=== PATIENT | female | born 1990 | race Hispanic/Latino ===

== ENCOUNTER → 2023-11-05 09:20 | Outpatient (REF) | payer OTHER, SELFPAY ==
[2023-11-05 10:42] LABS: ALT (SGPT) 48 U/L (0-35); AST (SGOT) 29 U/L (14-36); Albumin 4.5 g/dl (3.5-5.0); Alkaline Phosphatase 61 U/L (38-126); Blood Urea Nitrogen 12 mg/dl (7-17); Calcium 9.2 mg/dl (8.4-10.2); Carbon Dioxide 26 mmol/L (22-30); Chloride 101 mmol/L (98-107); Glucose 92 mg/dl (70-99); HDL Cholesterol 48 mg/dl; LDL Cholesterol, Calculated 104 mg/dl; Potassium 4.3 mmol/L (3.5-5.1); Sodium 135 mmol/L (135-145); Total Bilirubin 0.4 mg/dl (0.2-1.3); Total Cholesterol 163 mg/dl (50-199); Total Protein 7.5 g/dl (6.3-8.2); Triglyceride 59 mg/dl (10-149); Very Low Density Lipoprotein 11 mg/dl (0-30); eGFR > 60.00
[2023-11-05 13:11] LABS: Glycohemoglobin (HgbA1c) 5.7 % (4.0-5.6)
== END ==
LOC: REG 09:20
PROVIDERS: ATTENDING PHYSICIAN Internal Medicine
DX: Z13.1 Encounter for screening for diabetes mellitus (principal)
CPT/HCPCS: 36415; 80053; 80061; 83036

== ENCOUNTER → 2024-11-09 08:15 | Outpatient (REF) | payer OTHER, SELFPAY ==
[2024-11-09 09:34] LABS: Glycohemoglobin (HgbA1c) 5.7 % (4.0-5.6)
== END ==
LOC: REG 08:15
PROVIDERS: ATTENDING PHYSICIAN Internal Medicine
DX: R73.03 Prediabetes (principal)
CPT/HCPCS: 36415; 83036